=== PATIENT | male | born 2000 | race African-American/Black ===

== ENCOUNTER → 2020-07-26 | Outpatient (CLI) | payer OTHER | END | disposition home or self-care (01) | LOC: RAD 06:48 | PROVIDERS: ATTEND Family Medicine | DX: R91.8 Other nonspecific abnormal finding of lung field (principal); R68.84 Jaw pain; M27.2 Inflammatory conditions of jaws | CPT/HCPCS: 74240; 74248 ==

== ENCOUNTER → 2020-08-02 | Outpatient (CLI) | payer OTHER | END | disposition home or self-care (01) | LOC: CFH 08:51 | PROVIDERS: ATTEND Family Medicine | DX: R68.84 Jaw pain (principal); R19.8 Other specified symptoms and signs involving the digestive system and abdomen; M27.2 Inflammatory conditions of jaws | CPT/HCPCS: 70486 ==